=== PATIENT | female | born 1975 | race Caucasian/White ===

== ENCOUNTER 2020-09-03 14:41 | Emergency (ER) | payer MEDICAID ==
[~2020-09-03] VITALS: Ht 167.6 cm; Wt 116.9 kg
[2020-09-03 14:55] VITALS: BP 159/99
[2020-09-03] MEDS ORDERED: CLIN-97 PO (15:31)
== END 2020-09-03 15:45 | disposition home or self-care (01) ==
LOC: ER 14:42
DX: L03.90 Cellulitis, unspecified (principal); Z86.14 Personal history of Methicillin resistant Staphylococcus aureus infection; Z88.2 Allergy status to sulfonamides; Z79.2 Long term (current) use of antibiotics
CPT/HCPCS: 99283